=== PATIENT | female | born 1995 | race Caucasian/White ===

== ENCOUNTER 2020-01-22 17:09 | Outpatient (REF) | payer OTHER, SELFPAY | END 2020-01-22 17:10 | disposition home or self-care (01) | LOC: HO.LAB 17:09 | PROVIDERS: Visit Provider Internal Medicine | DX: Z20.828 Contact with and (suspected) exposure to other viral communicable diseases (principal) | CPT/HCPCS: 87635 ==

== ENCOUNTER 2020-05-26 16:25 | Emergency (ER) | payer OTHER, SELFPAY ==
[2020-05-26 18:09] VITALS: BP 114/59; PULSE 66; RESP 18; TEMP 37.1; O2SAT 97; BMI 29.2
== END 2020-05-26 20:30 | disposition left against medical advice (07) ==
PROVIDERS: Emergency Provider Emergency Medicine
DX: R51.9 Headache, unspecified (principal)
CPT/HCPCS: 99281; 99282

== ENCOUNTER 2020-08-11 11:02 | Outpatient (REF) | payer OTHER, SELFPAY ==
[2020-08-11 11:51] LABS: COVID-19 Test Negative (Negative)
== END 2020-08-11 11:03 | disposition home or self-care (01) ==
LOC: HO.EMPCOV 11:02
PROVIDERS: Visit Provider Internal Medicine
DX: Z20.822 Contact with and (suspected) exposure to COVID-19 (principal)
CPT/HCPCS: 36415; 87635; C9803

== ENCOUNTER 2020-08-22 12:39 | Outpatient (REF) | payer OTHER, SELFPAY ==
[2020-08-22 12:58] LABS: COVID-19 Test Negative (Negative)
== END 2020-08-22 12:40 | disposition home or self-care (01) ==
LOC: HO.EMPCOV 12:39
PROVIDERS: Visit Provider Internal Medicine
DX: Z20.822 Contact with and (suspected) exposure to COVID-19 (principal)
CPT/HCPCS: 36415; 87635; C9803

== ENCOUNTER 2020-09-19 11:24 | Outpatient (REF) | payer OTHER, SELFPAY ==
[2020-09-19 11:55] LABS: COVID-19 Test Negative (Negative); IDNOW Serial# 55D5AD1C
== END 2020-09-19 11:25 | disposition home or self-care (01) ==
LOC: HO.EMPCOV 11:24
PROVIDERS: Visit Provider Internal Medicine
DX: Z20.822 Contact with and (suspected) exposure to COVID-19 (principal)
CPT/HCPCS: 36415; 87635; C9803

== ENCOUNTER 2020-09-24 13:29 | Outpatient (REF) | payer OTHER, SELFPAY | END 2020-09-24 13:30 | disposition home or self-care (01) | LOC: HO.LAB 13:29 | PROVIDERS: Visit Provider Internal Medicine | DX: Z20.822 Contact with and (suspected) exposure to COVID-19 (principal) | CPT/HCPCS: C9803; U0003; U0005 ==